=== PATIENT | female | born 1990 | race American Indian/Alaskan Native ===

== ENCOUNTER 2016-04-06 15:23 | Emergency (ER) | payer OTHER | END 2016-04-06 15:25 | disposition left against medical advice (07) | LOC: ED 15:23 | DX: R11.2 Nausea with vomiting, unspecified (principal); R19.7 Diarrhea, unspecified; Z53.21 Procedure and treatment not carried out due to patient leaving prior to being seen by health care provider ==

== ENCOUNTER 2019-08-31 14:28 | Emergency (ER) | payer MEDICAID, OTHER ==
[2019-08-31 14:34] VITALS: BP 125/69
--- NOTE | 2019-08-31 18:22 | Emergency Department Report ---
ED Female HPI - General Chief complaint: Vaginal Bleeding Stated complaint: VAG BLEEDING Time Seen by Provider: 08/31/19 18:10 Source: patient Mode of arrival: Ambulatory Limitations: No Limitations - History of Present Illness Initial comments: 29-year-old F [place] female sent emerge department complaining of abnormal menses over the past 2 to 3 months. States she had a 21-day. The preceding months associated with some mild cramping and pain which he thought was unusual on this past week she reports having some vaginal bleeding but had a very heavy heavy amount of bleeding earlier this morning she has been she has gone through 7 pads a day. What was concerning was she passed a tissue like substance and was unsure if she may have been so came to the emergency department reports no nausea vomiting, no fevers chills or sweats no chest pain or palpitations no hematuria or dysuria. She was reports no suspicion for an STD hCG and she reports no trauma - Related Data Previous Rx's Medication Instructions Recorded Last Taken Type Acetaminophen/Codeine [Tylenol #3] 1 tab PO Q6H PRN #20 tab 01/09/15 Unknown Rx Tobramycin 0.3% [Tobrex] 2 drop OS Q4HR #1 bottle 01/09/15 Unknown Rx Allergies Allergy/AdvReac Type Severity Reaction Status Date / Time No Known Allergies Allergy Verified 01/09/15 10:11 ED Review of Systems ROS: Stated complaint: VAG BLEEDING Other details as noted in HPI Comment: All other systems reviewed and negative ED Past Medical Hx - Past Medical History Previous Medical History?: Yes Additional medical history: Thyroid problems - Surgical History Past Surgical History?: Yes Hx Appendectomy: Yes Additional Surgical History: - Social History Smoking Status: Current Every Day Smoker Substance Use Type: Alcohol, Marijuana - Medications Home Medications: Home Medications Medication Instructions Recorded Confirmed Last Taken Type Acetaminophen/Codeine [Tylenol #3] 1 tab PO Q6H PRN #20 tab 01/09/15 Unknown Rx Tobramycin 0.3% [Tobrex] 2 drop OS Q4HR #1 bottle 01/09/15 Unknown Rx ED Physical Exam - General Limitations: No Limitations General appearance: alert, in no apparent distress - Head Head exam: Present: atraumatic, normocephalic - Eye Eye exam: Present: normal appearance, PERRL Pupils: Present: normal accommodation - ENT ENT exam: Present: normal exam, normal orophraynx, mucous membranes moist, TM's normal bilaterally - Neck Neck exam: Present: normal inspection - Respiratory Respiratory exam: Present: normal lung sounds bilaterally. Absent: respiratory distress, wheezes, rales, chest wall tenderness, accessory muscle use - Cardiovascular Cardiovascular Exam: Present: regular rate, normal rhythm. Absent: systolic murmur, diastolic murmur, rubs, gallop - GI/Abdominal GI/Abdominal exam: Present: soft, tenderness (Suprapubic region), normal bowel sounds - Extremities Exam Extremities exam: Present: normal inspection - Back Exam Back exam: Present: normal inspection, tenderness - Neurological Exam Neurological exam: Present: alert, oriented X3 - Psychiatric Psychiatric exam: Present: normal affect, normal mood - Skin Skin exam: Present: warm, dry, intact, normal color. Absent: rash ED Course Vital Signs 08/31/19 14:32 Temperature 98.6 F Pulse Rate 68 Respiratory 18 Rate Blood Pressure 125/69 O2 Sat by Pulse 100 Oximetry ED Medical Decision Making - Lab Data Result diagrams: 08/31/19 18:49 08/31/19 18:49 - Radiology Data Radiology results: report reviewed Referring Physician:JUSTICE CRANEPatient Name:MICHELLE FLETCHERPatient ID:[id number] of :[id number]:FemaleAccession:[id number] Date:2032-03-25Oxfpas Status:Finalized Findings [facility] [address] [place] [address] Ultrasound Report Signed Patient: MICHELLE FLETCHER MR#: [id number] : 1990 Acct:[id number] Age/Sex: 29 / F ADM Date: 08/31/19 Loc: ED Attending Dr: Ordering Physician: ROSA MARIA KHOURY Date of Service: 08/31/19 Procedure(s): US pelvic complete Accession Number(s): [id number] cc: ROSA MARIA KHOURY Pelvic ultrasound. HISTORY: Vaginal bleeding. FINDINGS: Imaging was performed transabdominally. The uterus measures 8.8 x 4.6 x 7.3 cm. A fibroid at the fundus measures 3.8 cm. The endometrial stripe is thickened measuring 1.9 cm. Right ovary measures 3.2 x 2.1 x 2.3 cm in demonstrate flow. The left ovary is not visualized. Negative for adnexal mass or fluid. IMPRESSION: 1. Large fundal fibroid. 2. Thickened endometrial stripe measuring 1.9 cm. 3. Left ovary not visualized. Signer Name: Prince Peterson MD Signed: 08/31/2019 7:38 PM Workstation Name: [id number] Transcribed By: ES Dictated By: Prince Peterson MD Electronically Authenticated By: Prince Peterson MD Signed Date/Time: 08/31/191937 DD/ 36 TD/TT: - Medical Decision Making The patient was signed out to the incoming advance practice provider Jamar Kc. All decisions regarding the progression of care and interpretation of tests will be made at their discretion. Ultrasound is pending I was alerted that the patient left AMA Jamar Kc was aware of her leaving. He states that patient reported that she had to leave she was of sound judgment she was in no reported distress Critical care attestation.: If time is entered above; I have spent that time in minutes in the direct care of this critically ill patient, excluding procedure time. ED Disposition Clinical Impression: Pelvic pain Disposition: LEFT AGAINST MED ADVICE Is pt being admited?: No Does the pt Need Aspirin: No Condition: Undetermined Referrals: PRIMARY CARE, [Primary Care Provider] - 3-5 Days Forms: AMA Form
[2019-08-31 19:03] LABS: Basophils # (Auto) 0.1 K/mm3 (0.0-0.1); Basophils % (Auto) 0.6 % (0.0-1.8); Eosinophils # (Auto) 0.1 K/mm3 (0.0-0.4); Eosinophils % (Auto) 1.2 % (0.0-4.3); Hematocrit 29.8 % (30.3-42.9); Hemoglobin 9.7 gm/dl (10.1-14.3); Lymphocytes % (Auto) 21.6 % (13.4-35.0); Mean Corpuscular HGB Conc 32 % (30-34); Mean Corpuscular Volume 80 fl (79-97); Monocytes # (Auto) 0.4 K/mm3 (0.0-0.8); Monocytes % (Auto) 4.6 % (0.0-7.3); Platelet Count 324 K/mm3 (140-440); Red Blood Count 3.71 M/mm3 (3.65-5.03); Red Cell Distribution Width 18.1 % (13.2-15.2)
--- NOTE | 2019-08-31 19:43 | Ultrasound Report ---
Pelvic ultrasound. HISTORY: Vaginal bleeding. FINDINGS: Imaging was performed transabdominally. The uterus measures 8.8 x 4.6 x 7.3 cm. A fibroid a t the fundus measures 3.8 cm. The endometrial stripe is thickened measuring 1.9 cm. Right ovary measures 3.2 x 2.1 x 2.3 cm in demonstrate flow. The left ovary is not visualized. Negative for adnexal mass or fluid. IMPRESSION: 1. Large fundal fibroid. 2. Thickened endometrial stripe measuring 1.9 cm. 3. Left ovary not visualized. Signer Name: Prince Peterson MD Signed: 08/31/2019 7:38 PM Workstation Name: [id number]
[2019-08-31 20:18] LABS: Alanine Aminotransferase 12 units/L (7-56); BUN/Creatinine Ratio 15; Blood Urea Nitrogen 12 mg/dL (7-17); Calcium 8.5 mg/dL (8.4-10.2); Hemolysis Index 0
== END 2019-08-31 19:37 ==
LOC: ED 14:28
DX: N93.9 Abnormal uterine and vaginal bleeding, unspecified (principal); R10.2 Pelvic and perineal pain; F17.200 Nicotine dependence, unspecified, uncomplicated; F12.10 Cannabis abuse, uncomplicated; Z90.49 Acquired absence of other specified parts of digestive tract; Z98.890 Other specified postprocedural states; Z79.899 Other long term (current) drug therapy
CPT/HCPCS: 36415; 76856; 80053; 84702; 85025